=== PATIENT | female | born 1935 | race Caucasian/White ===

== ENCOUNTER 2017-01-02 16:36 | Inpatient (IN) | payer MEDICARE, SELFPAY ==
[~2017-01-02 16:36] MED LIST: DEPAKOTE ER250 M1 PO; FLONASE ALLERG9.9 ML; GLUCOPHAGE1000 M1 PO; LISINOPRIL40 M1 PO; LOPRESSOR50 MG PO; OMEPRAZOLE20 M3 PO; PAMELOR10 MG PO; SEROQUEL25 MG PO; SYNTHROID150 MC1 PO; THYROXINE; VITAMIN B-121000 MC1 PO; VITAMIN C500 M3 PO; [UNRECOGNIZED DRUG - OTHER]
[2017-01-02] MEDS ORDERED: SYNTHROID150 MC1 PO (16:46)
[2017-01-02] MEDS ORDERED: ULTRAM50 M1 PO (16:47)
[2017-01-02 17:46] LABS: BASO % 0.1 % (0-2); HCT-HEMATOCRIT 39.9 % (34.0-49.0); HGB-HEMOGLOBIN 12.8 gm/dl (12.0-15.5); IMMATURE GRANULOCYTES ABSOLUTE 0.01 tho/cmm (0-0.03); IMMATURE GRANULOCYTES PERCENT 0.1 % (0-0.3); LYMPH % 3.4 % (20-45); LYMPH ABSOLUTE COUNT 0.4 tho/cmm (0.8-4.5); MCH (MEAN CORPUSCULAR HGB) 27.4 pg (28.0-32.0); MCHC MEAN CORPUSCULAR HGB CONC 32.1 % (32.0-36.0); MCV (MEAN CELL VOLUME) 85.4 fl (82.0-96.0); MEAN PLATELET VOLUME 9.9 cmc (9.4-12.4); MONOCYTE ABSOLUTE COUNT 0.2 tho/cmm (0.0-1.2); NEUTROPHIL ABSOLUTE COUNT 10.4 tho/cmm (1.6-8.0); NEUTROPHIL-AUTOMATED 10.4 tho/cmm (1.6-8.0); NEUTROPHILS % 94.4 % (40-80); PLATELET COUNT 382 tho/cmm (150-450); RED BLOOD COUNT 4.67 mil/cmm (4.00-5.20); RED CELL DISTRIBUTION WIDTH 14.5 % (12.4-16.4)
[2017-01-02 18:13] LABS: ALB/GLOB RATIO 0.7 (0.8-2.0); ALBUMIN 3.7 g/dl (3.5-5.0); ALKALINE PHOSPHATASE 72 U/L (33-138); ALT/SGPT 13 U/L (12-78); ANION GAP 14 mmol/L (0-20); AST/SGOT 9 U/L (10-40); BILIRUBIN,TOTAL 0.6 mg/dl (0-1.5); BLOOD UREA NITROGEN 20 mg/dl (6-24); CALCIUM 9.4 mg/dl (8.5-10.5); CARBON DIOXIDE-VENOUS 25 mmol/L (22-32); CHLORIDE 103 mmol/l (96-110); CREATININE 1.12 mg/dl (0.50-1.10); GLUCOSE 195 mg/dL (70-110); LIPASE 106 U/L (73-393); MAGNESIUM 1.9 mg/dl (1.3-2.6); POTASSIUM 4.8 mmol/L (3.7-5.1); SODIUM 137 mmol/L (135-145); eGFR VALUE FOR BLACK 54 mL/Min
[2017-01-02 18:18] LABS: TSH-THYROID STIMULATING HORM. 0.69 uIU/ml (0.40-3.80)
[2017-01-02 18:58] LABS: URINE BILIRUBIN MODERATE (NEG); URINE BLOOD MODERATE (NEG); URINE GLUCOSE (UA) NEGATIVE (NEG); URINE KETONE SMALL (NEG); URINE LEUKOCYTE ESTERASE POSITIVE (NEG); URINE NITRITE POSITIVE (NEG); URINE PROTEIN MODERATE (NEG)
[2017-01-02 19:02] LABS: URINE APPEARANCE HAZY; URINE COLOR YELLOW
[2017-01-02 19:05] LABS: URINE BACTERIA 1+; URINE WBC FULL FIELD /[HPF] (0-5)
[2017-01-03 05:51] LABS: BASO % 0.1 % (0-2); EOS % 0.4 % (0-7); HCT-HEMATOCRIT 32.3 % (34.0-49.0); HGB-HEMOGLOBIN 10.2 gm/dl (12.0-15.5); IMMATURE GRANULOCYTES ABSOLUTE 0.01 tho/cmm (0-0.03); IMMATURE GRANULOCYTES PERCENT 0.1 % (0-0.3); LYMPH % 13.8 % (20-45); MCH (MEAN CORPUSCULAR HGB) 26.9 pg (28.0-32.0); MCHC MEAN CORPUSCULAR HGB CONC 31.6 % (32.0-36.0); MCV (MEAN CELL VOLUME) 85.2 fl (82.0-96.0); MEAN PLATELET VOLUME 9.9 cmc (9.4-12.4); MONO % 7.9 % (0-12); MONOCYTE ABSOLUTE COUNT 0.6 tho/cmm (0.0-1.2); NEUTROPHIL ABSOLUTE COUNT 5.8 tho/cmm (1.6-8.0); NEUTROPHIL-AUTOMATED 5.8 tho/cmm (1.6-8.0); NEUTROPHILS % 77.7 % (40-80); PLATELET COUNT 327 tho/cmm (150-450); RED BLOOD COUNT 3.79 mil/cmm (4.00-5.20); RED CELL DISTRIBUTION WIDTH 14.6 % (12.4-16.4); WHITE BLOOD COUNT 7.5 tho/cmm (4.0-10.0)
[2017-01-03 06:04] LABS: ANION GAP 10 mmol/L (0-20); BLOOD UREA NITROGEN 19 mg/dl (6-24); CALCIUM 8.2 mg/dl (8.5-10.5); CARBON DIOXIDE-VENOUS 23 mmol/L (22-32); CHLORIDE 109 mmol/l (96-110); CREATININE 0.77 mg/dl (0.50-1.10); GLUCOSE 143 mg/dL (70-110); SODIUM 138 mmol/L (135-145); eGFR VALUE FOR BLACK 85 mL/Min
[2017-01-03 06:20] LABS: POTASSIUM 3.9 mmol/L (3.7-5.1)
== END 2017-01-07 16:26 | disposition swing bed (61) | DRG 563 ==
LOC: EDMED 16:36 → EMR2 19:59 → 5EB 22:03
PROVIDERS: Family Medicine; ADMIT Internal Medicine
DX: S82.402A Unspecified fracture of shaft of left fibula, initial encounter for closed fracture (principal); G40.209 Localization-related (focal) (partial) symptomatic epilepsy and epileptic syndromes with complex partial seizures, not intractable, without status epilepticus; N39.0 Urinary tract infection, site not specified; D51.0 Vitamin B12 deficiency anemia due to intrinsic factor deficiency; E78.5 Hyperlipidemia, unspecified; E06.3 Autoimmune thyroiditis; E11.9 Type 2 diabetes mellitus without complications; F32.9 Major depressive disorder, single episode, unspecified; I10 Essential (primary) hypertension; I73.9 Peripheral vascular disease, unspecified
CPT/HCPCS: G8978-GP-CK; G8979-GP-CJ; J0696; J1650; J1815; J2270; J7030; J7050